=== PATIENT | female | born 1970 | race Caucasian/White ===

== ENCOUNTER 2017-01-31 21:35 | Emergency (ER) | payer OTHER ==
[~2017-01-31] VITALS: Ht 160 cm; Wt 86.2 kg
--- NOTE | 2017-01-31 22:22 | ED DYSPNEA/ASTHMA COMPLAINT ---
History of Present Illness General Chief Complaint: Wheezing/Asthma Stated Complaint: "I HAVE ASTHMA AND CANT BREATH" SAT 95% P 111 Source: patient Exam Limitations: no limitations Vital Signs & Intake/Output Vital Signs & Intake/Output Vital Signs Date Time Temp Pulse Resp B/P Pulse O2 O2 Flow FiO2 Ox Delivery Rate 01/31 2241 96 01/31 2215 85 93 Room Air 01/31 2145 97.9 92 22 135/79 94 Room Air Allergies Coded Allergies: Penicillins (Severe, anaphalactic reaction 01/31/17) Sulfa (Sulfonamide Antibiotics) (Mild, RASH 01/31/17) oxycodone (Mild, RASH 01/31/17) Reconcile Medications Albuterol Sulfate (Proair Hfa) 90 MCG HFA.AER.AD 2 PUF INH Q4-6 PRN PRN DYSPNEA Albuterol Sulfate 2.5 MG/3 ML (0.083 %) VIAL.NEB 1 Vial INH/BLOSSOM Q4P PRN DYSPNEA Azithromycin (Zithromax) 250 MG TABLET 1 DP PO D PNA Methylprednisolone. (Medrol) 4 MG TAB.DS.PK 1 DP PO AD INFLAMMATION 6 on day 1 then reduce by one tablet daily until gone Triage Note: RECEIVED 46 YO FEMALE WITH HX OF ASTHMA C/O CHEST COLD X 2 WEEKS, LAST 3 DAYS WITH WHEEZING AND SHORTNESS OF BREATH. MOIST PARTIALLY PRODUCTIVE COUGH. WHEEZING NOTED BILATERALLY Triage Nurses Notes Reviewed? yes Onset: Gradual Duration: week(s): (2), worse persistent since (TODAY) Timing: multiple episodes today Severity: moderate Activities at Onset: TRAVELLING IN MD Associated Symptoms: cough, wheezing : No Patient currently breastfeeds: No HPI: This is a 46 of the nail with history of asthma and hypothyroidism who presents to the ER with chief complaint of shortness of breath progressive over the last 2 weeks but worse 1 day. She is coughing up some yellow sputum. Subjective fevers. Patient recently moved and ran out of her inhaler and albuterol liquid. She denies any recent sick contacts today. Today while she was walking around the ER she had a very hard time breathing on and off for by. Chest tightness. No recent hospitalizations for asthma however was not hospitalized and intubated at the teenager. She does have a primary care doctor. Patient currently is smoking again. Past History Travel History Traveled to [place] past 21 day No Medical History Any Pertinent Medical History? see below for history Neurological: NONE EENT: NONE Cardiovascular: NONE Respiratory: asthma Gastrointestinal: NONE Hepatic: NONE Renal: NONE Musculoskeletal: NONE Psychiatric: A.D.D Endocrine: hypothyroidism Blood Disorders: NONE Cancer(s): NONE Surgical History Surgical History: IUD Psychosocial History What is your primary language [place] Tobacco Use: Never used Family History Hx Contributory? No Review of Systems Review of Systems Constitutional: Denies: chills, fever. EENTM: Reports: no symptoms. Respiratory: Reports: cough, short of breath, sputum production. Cardiovascular: Reports: chest pain. Denies: palpitations, peripheral edema. GI: Denies: abdominal pain, nausea, vomiting. Genitourinary: Denies: discharge, dysuria. Musculoskeletal: Reports: no symptoms. Skin: Reports: no symptoms. Neurological/Psychological: Denies: anxiety, confusion. Hematologic/Endocrine: Denies: bruising, bleeding, polyuria, polydipsia. Immunologic/Allergic: Denies: splenectomy. All Other Systems: Reviewed and Negative Physical Exam Physical Exam General Appearance: well developed/nourished, alert, awake, mild distress Head: atraumatic, normal appearance Eyes: Bilateral: normal appearance, PERRL, EOMI. Ears, Nose, Throat: normal pharynx, normal ENT inspection, hearing grossly normal Neck: normal inspection, supple, full range of motion Respiratory: decreased breath sounds, wheezing, respiratory distress Cardiovascular: regular rate/rhythm Peripheral Pulses: 2+ radial (R), 2+ radial (L) Gastrointestinal: normal bowel sounds, soft, non-tender Extremities: normal inspection, normal capillary refill, normal range of motion, no edema Neurologic/Psych: no motor/sensory deficits, awake, alert, oriented x 3 Skin: intact, normal color, warm/dry Core Measures ACS in differential dx? No Severe Sepsis Present: No Septic Shock Present: No Progress Differential Diagnosis: asthma, bronchitis, CHF, pulmonary embolism, pneumonia Plan of Care: Orders Procedure Date/time Status RT ED ORDERS 01/31 2255 Active RT ED ORDERS 01/31 2225 Active DUONEB, PREDNISONE, ZITH. PATIENT FEELING BETTER AFTER DUONEB. INCREASED A/E BILATERALY. REPEAT NEB ORDERED. (CESAR REHMAN,CHARLES) Initial ED EKG: none Departure Departure Time of Disposition: 1159 Disposition: HOME OR SELF CARE Condition: Stable Clinical Impression Primary Impression: Asthma exacerbation Referrals: WILLIAM GAVIN MD (PCP/Family) Additional Instructions: TAKE THE ALBUTEROL INHALER AND NEBULIZER DIRECTED. TAKE THE MEDROL DOSE PACK AND ZITHROMAX DIRECTED. FOLLOW UP WITH YOUR DOCTOR IN THE OFFICE. RETURN TO THE ER NEEDED. Departure Forms: Customer Survey General Discharge Information Prescriptions: Current Visit Scripts Methylprednisolone. (Medrol) 1 DP PO AD #1 DP 6 on day 1 then reduce by one tablet daily until gone Albuterol Sulfate (Proair Hfa) 2 PUF INH Q4-6 PRN PRN DYSPNEA #1 INHAL Albuterol Sulfate 1 Vial INH/BLOSSOM Q4P PRN DYSPNEA #1 BOX Azithromycin (Zithromax) 1 DP PO D #4 TAB Critical Care Note Critical Care Note Critical Care Time: non-applicable
[2017-01-31] MEDS ORDERED: MEDROL4 M2 PO (23:19)
[2017-01-31] MEDS ORDERED: ALBUTEROL2.5 MG/3 M INH/SOL (23:19)
[2017-01-31] MEDS ORDERED: ZITHROMAX250 M2 PO (23:19)
[2017-01-31] MEDS ORDERED: PROAIR HFA8.5 GM INH (23:19)
[2017-02-01 00:16] VITALS: BP 128/85
== END 2017-02-01 00:17 ==
LOC: ERH 21:35
DX: J45.901 Unspecified asthma with (acute) exacerbation (principal)
CPT/HCPCS: 1263